=== PATIENT | male | born 1960 | race Caucasian/White ===

== ENCOUNTER → 2024-08-24 | Day surgery (SDC) | payer OTHER ==
[2024-08-21 10:03] LABS: BASOPHILS # (AUTO) 0.1 (0.0-0.1); BASOPHILS % 1.1 % (0.0-1.0); EOSINOPHILS # (AUTO) 0.1 (0.0-0.4); HEMATOCRIT 39.9 % (38.2-49.6); HEMOGLOBIN 13.5 g/dL (14.0-18.0); LYMPHOCYTES # (AUTO) 1.7 (1.0-3.2); LYMPHOCYTES % 28.1 % (18.0-39.1); MEAN CORPUSCULAR HGB CONC 33.8 g/dL (31-35); MEAN CORPUSCULAR VOLUME 91.5 fL (81-99); MONOCYTES # (AUTO) 0.6 (0.2-0.8); MONOCYTES % 10.1 % (4.4-11.3); NEUTROPHILS # (AUTO) 3.6 (2.1-6.9); NEUTROPHILS % 58.2 % (38.7-80.0); PLATELET COUNT 237 x10e3/uL (140-360); RED BLOOD COUNT 4.36 x10e6/uL (4.3-5.7); RED CELL DISTRIBUTION WIDTH 13.3 % (11.7-14.4); WHITE BLOOD COUNT 6.13 x10e3/uL (4.8-10.8)
[~2024-08-24] MED LIST: ACETAMINOPHEN 1000 MG/100 ML 100 ML IV ONE; ACETAMINOPHEN 1000 MG/100 ML IV PRN; AMITRIPTYLINE H25 MG PO; ASPIRIN 325 MG TAB PO SCH; ASPIRIN81 MG PO; CELECOXIB 100 MG CAP PO SCH; DILANTIN100 MG PO; DIPHENHYDRAMINE HCL INJ 50 MG/ML VIAL IV PRN; DOCUSATE SODIUM 100 MG CAP PO PRN; EPHEDRINE SULFATE INJ 50 MG/ML VIAL ONE; FAMOTIDINE 20 MG/2 ML VIAL IV ONE; FENTANYL CITRATE/PF 100MCG/2 ML INJ ONE; FEROSUL325 MG PO; HYDROCODONE/APAP 5MG-325MG TAB PO PRN; HYDROCODONE/APAP 7.5MG-325MG 1 EA TAB PO PRN; INDERAL20 MG PO; KEPPRA500 MG PO; LIDOCAINE HCL 2% LOCAL INJ 5 ML SDV VIAL INJ ONE; MIDAZOLAM HCL 2 MG/2 ML VIAL ONE; ONDANSETRON HCL INJ 2MG/ML 2ML 2 MG/ML VIAL IV PRN; ONDANSETRON HCL INJ 2MG/ML 2ML 2 MG/ML VIAL ONE; PHENOBARBITAL60 MG PO; PRAMIPEXOLE D0.25 MG PO; PROPOFOL IV EMULSION 10 MG/ML 20 ML VIAL ONE; ROCURONIUM BROMIDE 1 ML IV ONE; ROPIVACAINE/EPI/CLONIDINE/KET 50 ML SYRINGE INJ ONE; SEVOFLURANE INHAL SOLN 250 ML PEN BTL ONE; SODIUM CHLORIDE 0.9% 1000ML 1,000 ML IV SCH; SUGAMMADEX SODIUM 200 MG/2 ML VIAL IV ONE; TRANEXAMIC ACID 1,000 MG/10 ML ML ONE; VITAMIN D31250 MCG
[2024-08-24] MEDS: CEFAZOLIN SODIUM 2 GM ONE (06:58)
[2024-08-24] MEDS: CELECOXIB 200 MG CAP ONE ×2 (06:59)
[2024-08-24] MEDS: GABAPENTIN 300 MG CAP ONE (06:59)
[2024-08-24] MEDS: DEXAMETHASONE SOD PHOS 10 MG/1 ML VIAL ONE (06:59)
[2024-08-24] MEDS: LACTATED RINGER'S 1,000 ML ONE (07:00)
[2024-08-24] MEDS: KETOROLAC TROMETHAMINE 30 MG/ML VIAL ONE (10:35)
[2024-08-24] MEDS: FENTANYL CITRATE/PF 100MCG/2 ML INJ ONE (10:42)
[2024-08-24 12:30] VITALS: BP 121/85; PULSE 90; RESP 16; O2SAT 98
== END | disposition home health service (06) ==
LOC: OR 05:55
PROVIDERS: ATTEND Specialist
DX: M16.12 Unilateral primary osteoarthritis, left hip (principal); G40.909 Epilepsy, unspecified, not intractable, without status epilepticus; Z01.810 Encounter for preprocedural cardiovascular examination; Z01.812 Encounter for preprocedural laboratory examination; Z79.899 Other long term (current) drug therapy
CPT/HCPCS: 27130; 36415; 72170; 85025; 86850; 86900; 93005; 97116; 97161; 97530; C1713 ×2; C1776; J0131; J1100; J1885; J2003; J2250; J2405; J2704; J3010; J7121

== ENCOUNTER 2024-09-29 20:09 | Emergency (ER) | payer MEDICAID, OTHER ==
[~2024-09-29] VITALS: Ht 185.4 cm; Wt 75.7 kg
[~2024-09-29 20:09] MED LIST changes: -ACETAMINOPHEN 1000 MG/100 ML 100 ML IV ONE; -ACETAMINOPHEN 1000 MG/100 ML IV PRN; -ASPIRIN 325 MG TAB PO SCH; -CELECOXIB 100 MG CAP PO SCH; -DIPHENHYDRAMINE HCL INJ 50 MG/ML VIAL IV PRN; -DOCUSATE SODIUM 100 MG CAP PO PRN; -EPHEDRINE SULFATE INJ 50 MG/ML VIAL ONE; -FAMOTIDINE 20 MG/2 ML VIAL IV ONE; -FENTANYL CITRATE/PF 100MCG/2 ML INJ ONE; -HYDROCODONE/APAP 5MG-325MG TAB PO PRN; -HYDROCODONE/APAP 7.5MG-325MG 1 EA TAB PO PRN; -LIDOCAINE HCL 2% LOCAL INJ 5 ML SDV VIAL INJ ONE; -MIDAZOLAM HCL 2 MG/2 ML VIAL ONE; -ONDANSETRON HCL INJ 2MG/ML 2ML 2 MG/ML VIAL IV PRN; -ONDANSETRON HCL INJ 2MG/ML 2ML 2 MG/ML VIAL ONE; -PROPOFOL IV EMULSION 10 MG/ML 20 ML VIAL ONE; -ROCURONIUM BROMIDE 1 ML IV ONE; -ROPIVACAINE/EPI/CLONIDINE/KET 50 ML SYRINGE INJ ONE; -SEVOFLURANE INHAL SOLN 250 ML PEN BTL ONE; -SODIUM CHLORIDE 0.9% 1000ML 1,000 ML IV SCH; -SUGAMMADEX SODIUM 200 MG/2 ML VIAL IV ONE; -TRANEXAMIC ACID 1,000 MG/10 ML ML ONE
[2024-09-29 20:51] VITALS: PULSE 83; RESP 18; TEMP 98.4; O2SAT 97
[2024-09-29] MEDS ORDERED: ACETAMINOPHEN-1 EAC4 PO (20:56)
== END 2024-09-29 21:01 | disposition home or self-care (01) ==
LOC: ER 20:51
DX: M25.552 Pain in left hip (principal); X50.1XXA Overexertion from prolonged static or awkward postures, initial encounter; Y93.01 Activity, walking, marching and hiking; Y92.89 Other specified places as the place of occurrence of the external cause; I10 Essential (primary) hypertension; E78.5 Hyperlipidemia, unspecified; G40.909 Epilepsy, unspecified, not intractable, without status epilepticus; G47.30 Sleep apnea, unspecified; G25.81 Restless legs syndrome; Z96.642 Presence of left artificial hip joint
CPT/HCPCS: 99283